=== PATIENT | male | born 1975 | race Caucasian/White ===

== ENCOUNTER 2017-03-20 03:09 | Inpatient (IN) | payer MEDICARE ==
--- NOTE | ~2017-03-20 | A ---
[facility] Nutrition Therapy DATE: 03/20/17 Patient: LEROY TROY Physician: ITALIA Address: [address] [facility] Room/Bed: [address], Zip: [place] [address] Admit Date: 03/20/17 Date of : 75 Height: 6 0 Weight: 156 71 NUTRITIONAL ASSESSMENT: REASON: Enteral nutrition recommendations, NPO status 41 yo male admitted for acute hypoxic respiratory failure, SOA PMH: Drug abuse, asthma Anthropometrics: Ht: 6'0" Adm wt: 71 kg BMI: 21.2 IBW: 80.9 kg, 88% IBW Labs: Gluc 141 Meds: Propofol @ 18.9 mL/hr, levaquin (IV), fentanyl, protonix, solu-medrol, KCl I/O & Bowel function: none available, last BM unknown Skin Integrity: No breakdown or edema noted Estimated Nutrition Needs: 6163-4740 kcals (25-30 kcals/kg) 85-106 grams protein (1.2-1.5 grams protein/kg) Assessment: Chart reviewed, events noted. Pt is intubated and sedated in the ICU. Propofol is providing an additional 499 kcals from lipids at this time. Pt has a h/o drug abuse and asthma. Orders to place DHT and start enteral nutrition per RD recommendations. No family is present in the room to provide nutritional history. Please refer to recommendations below. Dx: Inadequate protein-energy intake RT ventilator dependence AEB NPO status, orders for EN. Intervention: 1. Enteral nutrition Monitoring, Evaluation and Goals: 1. Enteral nutrition; initiate, provide >80% goal volume x 24 hrs 2. Improve labs; glucose 3. Weight; prevent weight loss, promote gradual weight gain towards IBW Recommendations: 1. While the pt remains on propofol, start enteral nutrition with Jevity 1.5 @ 20 mL/hr + 30 mL Prostat BID. Increase by 10 mL q 6 hrs as tolerated to goal of 40 mL/hr + 30 mL Prostat BID. This will provide: 2139 kcals/ 91 grams protein/ 730 mL free H20 [facility] Nutrition Therapy DATE: 03/20/17 Patient: LEROY TROY Physician: ITALIA Address: [address] Room/Bed: [address], Zip: [place] [address] Admit Date: 03/20/17 Date of : [birth year] Height: 6 0 Weight: 156 71 2. When propofol is discontinued, D/C prostat and increase Jevity 1.5 by 10 mL q 6 hrs to goal of 60 mL/hr. This will provide: 2160 kcals/ 92 grams protein/ 1094 mL free H20 3. If the pt is extubated, recommend ENGINEER evaluation. Pt is at moderate-severe nutritional risk. RD will follow up per protocol. Respectfully, ABDIRASHID MA RD, LD Food and Nutritional Services [facility] cc: client file
--- NOTE | ~2017-03-20 | DS ---
Unit #: [id number] #: [id number] Patient: LEROY TROY [id number] [address] [address] [id number] I MR#: [id number] NAME: LEROY TROY ROOM: [facility] Age: 41 Sex: M Admission Date: 03/20/2017 : 1975 Discharge Date: Attending Physician: Jewels Multani M.D. Primary Care Physician: No Primary Care Physician DISCHARGE SUMMARY DISCHARGE DIAGNOSES 1. Acute hypercapnic hypoxic respiratory failure. 2. Asthma with exacerbation with status asthmaticus. 3. IV drug abuse. 4. Polysubstance abuse with methamphetamine and heroin. 5. Questionable maxillary nasal lesion secondary to snorting heroin. 6. Lung mass, needs outpatient followup. 7. Noncompliance. 8. Toxic metabolic encephalopathy present on admission. 9. Sinus tachycardia, likely from drug withdrawal. CONSULTATION Dr. Diez. PROCEDURE None. DIAGNOSTIC STUDIES LABORATORY: Sodium 136, potassium 3.5, creatinine 0.7. WBC 21.8, hemoglobin 13, platelets 358,000. Urine drug screen positive for marijuana. Troponin 0.08. ABG: A pH 7.42, carbon dioxide 48, oxygen 101. Blood cultures negative. IMAGING: Chest x-ray, two view, shows no acute infiltrate. CT of the head shows expansile lesion anterior cortical disruption involving the maxilla extending to the right of the midline measuring 4.2 x 1.4 cm. ALLERGIES None. DISCHARGE MEDICATIONS 1. Lopressor 50 p.o. b.i.d. 2. Albuterol mini nebs inhalation four times daily p.r.n. shortness of breath. 3. Albuterol MDI two puffs inhalation four times daily p.r.n. 4. Prednisone tapering dose. 5. Vistaril 25 mg p.o. b.i.d. HOSPITALIZATION COURSE A 41 year old admitted because of shortness of breath and respiratory distress. Unit #: [id number] #: [id number] Patient: LEROY TROY Acute hypercapnic hypoxic respiratory failure from drug abuse and asthma. The patient was intubated, currently extubated. He does not need home oxygen. Asthma with status: Patient was intubated. IV Solu-Medrol and DuoNeb have been given. Currently, breathing better. No wheezing. Patient will continue prednisone tapering dose and albuterol nebulizer and puffer. Patient needs to follow with Dr. Diez as an outpatient. IV drug abuse with polysubstance abuse including methamphetamine, heroin, and marijuana. Advised to quit. Patient is seen by Dr. Chi, started on Vistaril. Patient needs to follow outpatient for followup. Nasal lesion with maxillary involvement, likely secondary to snorting heroin. Patient will follow ENT as an outpatient. Initially, patient refused to follow. Also, patient will follow Dr. Diez for followup. Questionable lung mass: Patient to follow Dr. Diez as an outpatient for that. Discussed with mother and sister. Patient has noncompliance issues, high risk of re-admission from drug abuse. DISPOSITION Discharge home. FOLLOWUP Follow with family physician in two weeks' time. Patient needs followup for his maxillary mass and lung mass with ENT and pulmonary. Follow with outpatient [facility] in two weeks' time. Discharge time taken is 35 minutes. Dictated by... Mateusz Mota/kristal TD: 03/27/2017 13:45 JOB #: [id number] DISCHARGE SUMMARY Page 1 of 1 X Jewels Multani MD X DISCHARGE SUMMARY
--- NOTE | ~2017-03-20 | CR63 ---
[facility] A Service of [facility] & [facility] RADIOLOGY TEXT RESULTS PATIENT: LEROY TROY LOCATION: [place] [address]- : 75 UNIT #: [id number] AGE: [address]: Jewels Multani MD SEX: M ORDER DR: [id number] [place] [id number] [facility]. [place], [place] [address] [id number] I MR#: [id number] Acc #: [id number] NAME: LEROY TROY : 1975 SEX: M STUDY DATE/TIME: 03/26/2017 8:22 UNIT: [facility] ROOM: [facility] STUDY DESCRIPTION: CR Chest 2 View Attending Physician: Jewels Multani M.D. Ordering Physician: Gildardo Munoz M.D. MEDICAL IMAGING REPORT This report is preliminary unless electronic signature is present EXAM Portable chest INDICATIONS Followup shortness of breath and respiratory failure. COMPARISON STUDIES 03/21/2017. FINDINGS The endotracheal tube has been removed. The right IJ central venous catheter is stable. No new infiltrates. Heart size stable. NG tube has been removed. Visualized osseous structures are unremarkable. IMPRESSION Removal of the ET tube and NG tubes. Otherwise, no significant change. No acute infiltrate. Dictated by... Rehan Govea M.D. THIS IS AN ELECTRONICALLY VERIFIED REPORT Rehan Govea M.D. at 03/27/2017 7:50 AM ARS/pcl TD: 03/26/2017 13:30 JOB #: [id number] MEDICAL IMAGING REPORT Page 1 of 1 COPY
--- NOTE | ~2017-03-20 | EKG ---
PATIENT: LEROY TROY UNIT #: [id number] Ventricular Rate: 75 BPM Atrial Rate: 75 BPM P-R Interval: 100 ms QRS Duration: 74 ms Q-T Interval: 416 ms QTC Calculation(Bezet): 464 ms P [place]: 37 degrees Calculated R [place]: 71 degrees Calculated T [place]: 79 degrees Diagnosis Line: Sinus rhythm with short AR Diagnosis Line: Voltage criteria for left ventricular hypertrophy Diagnosis Line: Abnormal ECG Diagnosis Line: When compared with ECG of 20-MAR-2017 03:35, Diagnosis Line: Vent. rate has decreased BY 48 BPM Diagnosis Line: Diagnosis Line: Confirmed by HILLARY SILVERIO MD ([id number]) on Diagnosis Line: 03/26/2017 11:12:30 AM INTERPRETING : ALDO
--- NOTE | ~2017-03-20 | CR7 ---
[facility] A Service of [facility] & [facility] RADIOLOGY TEXT RESULTS PATIENT: LEROY TROY LOCATION: [address] : [birth year] UNIT #: [id number] AGE: [address]: Jewels Multani MD SEX: M ORDER DR: [id number] [facility] [address] [facility]. [place], [place] [address] [id number] I MR#: [id number] Acc #: [id number] NAME: LEROY TROY : 1975 SEX: M STUDY DATE/TIME: 03/20/2017 11:59 UNIT: [facility] ROOM: [facility] STUDY DESCRIPTION: CR Abdomen Single AP View Attending Physician: Jewels Multani M.D. Ordering Physician: Kylee Diez M.D. Primary Care Physician: Primary Care Physician No MEDICAL IMAGING REPORT This report is preliminary unless electronic signature is present EXAM Abdomen one-view 03/20/2017 1159 hours HISTORY 41-year-old man for Dobbhoff tube placement today. COMPARISON None. FINDINGS Single limited view of the abdomen excludes the right abdomen and the pelvis. There is a Dobbhoff tube present with tip directed leftward and cephalad in the fundus of the stomach. IMPRESSION Dobbhoff tube tip is in the fundus of the stomach with tip directed leftward and slightly cephalad. Dictated by... Mary Grace Tapia M.D. THIS IS AN ELECTRONICALLY VERIFIED REPORT Mary Grace Tapia M.D. at 03/20/2017 7:31 PM Jade TD: 03/20/2017 13:54 JOB #: [id number] MEDICAL IMAGING REPORT Page 1 of 1 COPY
--- NOTE | ~2017-03-20 | EKG ---
PATIENT: LEROY TROY UNIT #: [id number] Ventricular Rate: 123 BPM Atrial Rate: 123 BPM P-R Interval: 138 ms QRS Duration: 84 ms Q-T Interval: 322 ms QTC Calculation(Bezet): 460 ms P [place]: 79 degrees Calculated R [place]: 71 degrees Calculated T [place]: 58 degrees Diagnosis Line: Sinus tachycardia Diagnosis Line: Possible Left atrial enlargement Diagnosis Line: Borderline ECG Diagnosis Line: No previous ECGs available Diagnosis Line: Confirmed by TINO BENDER MD ([id number]) on Diagnosis Line: 03/20/2017 5:50:36 PM INTERPRETING MD: LINDA
--- NOTE | ~2017-03-20 | FU ---
[facility] Nutrition Therapy DATE: 03/24/17 Patient: LEROY SYDNI Physician: ITALIA Address: [address] [place] [address] Room/Bed: [address], Zip: [place] [address] Admit Date: 03/20/17 Date of : [birth year] Height: 6 0 Weight: 156 71 NUTRITION MONITORING/FOLLOW-UP: Reason: Nutrition follow up Anthropometrics: Wt 03/24: 71 kg Labs: Gluc 130 Creat 0.5 Ca++ 8.3 Meds: Protonix, zofran, solu-medrol, NaCl I&O's: 5283/4525, last BM 03/20 Skin: No breakdown or edema noted Diet: Regular + thin liquids Assessment: Chart reviewed, events noted. Pt was extubated on 03/22 and DHT removed. Regular diet with thin liquids ordered per SPECIAL NEEDS CAREGIVER evaluation. Pt is SOA, wheezing per RN report. Pt consumed 100% of a V8 and 50% of oatmeal for breakfast this AM per RN report. RN reports that the pt continually orders a house tray for each meal. RD spoke with the pt and his girlfriend at bedside. RD explained the importance of adequate protein-energy in relation to the pt's increased nutritional needs. Pt was on BiPAP, but nodded his head in understanding. Pt is agreeable to Ensure and Magic Cup supplements. RD reviewed the menu with the pt's girlfriend, determining the foods that the pt would be more likely to eat. RD encouraged RN and the pt's girlfriend to order foods that the pt prefers to increase his intake. RD ordered supplements and fill continue to follow up with the pt. Pt denied having any questions regarding nutrition at this time. Dx: Inadequate protein-energy intake RT ventilator dependence AEB NPO status, order for EN- RESOLVED/ NO LONGER RELEVANT New Dx: Inadequate nutrient intake RT respiratory distress AEB pt on BiPAP, 50% of breakfast consumed. Intervention: 1. Diet per SPECIAL NEEDS CAREGIVER 2. Ensure BID and Magic Cup BID Monitoring, Evaluation and Goals: 1. Enteral nutrition-NO LONGER RELEVANT 2. Improve labs; glucose- IMPROVED 3. Weight; prevent weight loss- MET [facility] Nutrition Therapy DATE: 03/24/17 Patient: LEROY TROY Physician: ITALIA Address: [address] [place] [address] Room/Bed: [address], Zip: [place] [address] Admit Date: 03/20/17 Date of : [birth year] Height: 6 0 Weight: 156 71 NEW GOALS: 1. Oral intake; tolerate >50-75% of meals and supplements 2. Weight; prevent unintentional weight loss 3. GI; promote regular GI function Recommendations: 1. Continue regular diet with thin liquids per SPECIAL NEEDS CAREGIVER recommendations. No further diteary restrictions recommended at this time. Pt may benefit from 6 small meals if unable to consume >50% of meals. 2. Ensure chocolate BID and Magic Cup chocolate BID for supplemental nutrition. 3. Appreciate staff and family encouraging and assisting with nutritional intake as needed. 4. Optimize the pt's bowel regimen with last noted BM 03/20. Status: Pt is at moderate nutritional risk. RD will continue to follow hospital course. Respectfully, ABDIRASHID MA RD, LD Food and Nutritional Services [facility] cc: client file
--- NOTE | ~2017-03-20 | CO ---
Unit #: [id number] #: [id number] Patient: LEROY NAYLOR [id number] [address] [address] [id number] I MR#: [id number] NAME: LEROY NAYLOR ROOM: 551 Age: 41 Sex: M Admission Date: 03/20/2017 : 1975 Attending Physician: Jewels Multani M.D. Consultation Date: 03/27/2017 CONSULTATION REPORT REASON FOR CONSULTATION Confusion, agitation, paranoia. HISTORY OF PRESENT ILLNESS Mr. Leroy Naylor is a 41-year-old male, seen in room 551, bed 1 on 03/27/2017 at [facility]. The patient was seen for the above reason. The patient was admitted for respiratory distress. The patient's oxygen saturation was 70% upon admission, the patient needed intubation. The patient has a history of asthma, lung mass questionable. The patient has a history of meth and marijuana abuse. The patient was pleasant and cooperative during interview. The patient has a sitter. Mood was labile, but denied any thoughts of harming self or others or any psychotic symptom. The patient reports feeling better. The patient has a history of IV drug abuse, history of polysubstance abuse including meth and marijuana. PAST PSYCHIATRIC HISTORY Unremarkable for any history of any previous treatment. History of substance abuse as mentioned above. MEDICAL HISTORY Remarkable for history of asthma and history of lung mass questionable cancer. MEDICATIONS Upon admission, none. FAMILY HISTORY AND SOCIAL HISTORY The patient has a poor support system. No history of abuse. History of substance abuse as mentioned above, meth and opioids. REVIEW OF SYSTEMS Complete review of system is unremarkable. MENTAL STATUS EXAMINATION Vital signs; temperature 97.7, pulse 108, respirations 16, blood pressure 93/54, and oxygen saturation 91%. General appearance; the patient dressed casually, lying comfortably in bed. The patient has a sitter, reports him doing much better. Attention span and concentration, fair. Speech, regular rate and somewhat loud. Oriented in time, place, and person. Mood and affect were labile. Thought process, circumstantial. The patient denied any thoughts of harming self or others or any psychotic symptom. Recent and remote memory, fair. Language, intact. Fund of knowledge, fair. Insight and judgment, fair to slightly impaired. Unit #: [id number] #: [id number] Patient: LEROY NAYLOR DIAGNOSES Psychiatric: Opioid use disorder, severe, F11.20; amphetamine use disorder, moderate, F15.20; psychosis, not otherwise specified, F29.0, resolved. Secondary diagnosis: Deferred. Medical diagnosis: Please refer to H and P. Stressors: Psychosocial stressors. ASSESSMENT/PLAN 1. Supportive psychotherapy and psychoeducation provided to the patient. 2. Educated about benefits and side effects of medication and course and prognosis of illness. 3. Advised no medication at this time and we will continue to follow and recommending the patient [facility] and given crisis line #[phone]. Please feel free to call if any questions, telephone #[phone]. Dictated by... César Chi M.D. STEPHANY/troy TD: 03/28/2017 23:19 JOB #: [id number] CONSULTATION REPORT Page 1 of 1 X César Chi MD X CONSULTATION REPORT
--- NOTE | ~2017-03-20 | CR72 ---
[facility] A Service of [facility] & [facility] RADIOLOGY TEXT RESULTS PATIENT: LEROY TROY LOCATION: [address] : [birth year] UNIT #: [id number] AGE: [address]: Jewels Multani MD SEX: M ORDER DR: [id number] [facility] [address] [facility]. [place], [place] [address] [id number] I MR#: [id number] Acc #: [id number] NAME: LEROY TROY : 1975 SEX: M STUDY DATE/TIME: 03/20/2017 13:22 UNIT: [facility] ROOM: [facility] STUDY DESCRIPTION: CR Chest Single View Portable Attending Physician: Jewels Multani M.D. Ordering Physician: Jewels Multani M.D. Primary Care Physician: No Primary Care Physician MEDICAL IMAGING REPORT This report is preliminary unless electronic signature is present EXAM Chest, portable, 03/20/2017, 1322 hours. CLINICAL HISTORY 41-year-old man with shortness of air today. Patient placed on ventilator with central line placement today. History of asthma. COMPARISON 03/20/2017 FINDINGS Portable upright film demonstrates the patient to be slightly rotated to the right. There is an endotracheal tube with tip approximately 4.5 cm above the ananth. There is a new right IJ catheter with tip at the upper right atrium. If it is desired to have the tip in the SVC, I would suggest withdrawing it approximately 3 cm. The pulmonary vascularity is normal. The lungs are clear and there are no effusions. There is a flexible feeding tube present which loops in the stomach with tip directed leftward and cephalad in the fundus of the stomach. IMPRESSION Rotated film with stable endotracheal tube. New right IJ catheter tip is in the upper right atrium. If it is desired to have the tip in the SVC, I would suggest withdrawing the catheter 3 cm. Dobbhoff tube tip is in the fundus of the stomach directed leftward and cephalad. The lungs are clear and there is no pneumothorax. Dictated by... Mary Grace Tapia M.D. THIS IS AN ELECTRONICALLY VERIFIED REPORT [facility] A Service of [facility] & [facility] RADIOLOGY TEXT RESULTS PATIENT: LEROY TROY LOCATION: [facility]3-15 : [birth year] UNIT #: [id number] AGE: [address]: Jewels Multani MD SEX: M ORDER DR: Mary Grace Tapia M.D. at 03/20/2017 7:31 PM JHONNY/tracie TD: 03/20/2017 15:18 JOB #: [id number] MEDICAL IMAGING REPORT Page 1 of 1 COPY
--- NOTE | ~2017-03-20 | CT71 ---
[facility] A Service of [facility] RADIOLOGY TEXT RESULTS PATIENT: LEROY TROY LOCATION: [address] : [birth year] UNIT #: [id number] AGE: [address]: Jewels Multani MD SEX: M ORDER DR: [id number] [place] [address] [facility]. [place], [place] [address] [id number] I MR#: [id number] Acc #: [id number] NAME: LEROY TROY : 1975 SEX: M STUDY DATE/TIME: 03/20/2017 7:18 UNIT: [facility] ROOM: [facility] STUDY DESCRIPTION: CT Head Wo Contrast Attending Physician: Jewels Multani M.D. Ordering Physician: Ed Doctor [id number] [facility] Primary Care Physician: Primary Care Physician No MEDICAL IMAGING REPORT This report is preliminary unless electronic signature is present EXAM CT head without contrast Date: 03/20/2017 HISTORY Unequal pupils, new today, onset 1.5 hours ago. On the ventilator. Shortness of breath. Physician's history states pupils are nonreactive. COMPARISON None. This CT exam was performed with one or more of the following radiation dose reduction techniques: automatic exposure control, adjustment of mA and/or kV according to patient size, and iterative reconstruction. FINDINGS Study is mildly degraded by motion related to the ventilator, requiring repeated attempts at imaging. No intracranial hemorrhage, mass lesion, mass effect or midline shift is seen. The michaud matter - white matter junction distinction appears preserved without evidence of acute or evolving infarct at this time. Mucous retention cyst or polyp is seen within the left maxillary sinus. There is an abnormal appearance of the maxilla. There is discontinuity at the anterior cortical margin right maxilla, and the area of involvement appears in central soft tissue density. In the absence of a provided history previous surgery or trauma to this region, neoplastic etiology cannot be excluded. The patient is orally intubated. The mastoid air cells appear clear. IMPRESSION [facility] A Service [facility] RADIOLOGY TEXT RESULTS PATIENT: LEROY TROY [facility] [birth year] UNIT #: [id number] AGE: [address]: Jewels Multani MD SEX: M ORDER DR: 1. No acute appearing intracranial findings. Mild degradation due to ventilator respiratory motion. 2. Expansile lesion with anterior cortical disruption involving the maxilla extending to the right of midline measuring 4.2 x 1.4 cm. In the absence of history of trauma or previous surgical intervention, neoplastic etiology such as squamous cell carcinoma cannot be excluded. Please correlate with direct physical examination findings. Consider correlation to dedicated CT face with contrast if it would aid in patient's clinical management this time. Dictated by... Lida Ibrahim M.D. THIS IS AN ELECTRONICALLY VERIFIED REPORT Lida Ibrahim M.D. at 03/21/2017 8:46 AM Edy TD: 03/20/2017 10:30 JOB #: [id number] MEDICAL IMAGING REPORT Page 1 of 1 COPY
--- NOTE | ~2017-03-20 | CO ---
Unit #: [id number] #: [id number] Patient: LEROY TROY [id number] [address] [place], [place] [address] [id number] I MR#: [id number] NAME: LEROY TROY ROOM: [facility] Age: 41 Sex: M Admission Date: 03/20/2017 : 1975 Attending Physician: Jewels Multani M.D. Primary Care Physician: No Primary Care Physician Consultation Date: 03/20/2017 CONSULTATION REPORT REASON FOR CONSULT ICU management. HISTORY OF PRESENT ILLNESS This is a 41-year-old male with past medical history significant for asthma and IV drug abuse, who presented to the emergency room with respiratory distress. Per his mom who is at bedside, she stated that he has been complaining of shortness of breath for the last two days but it was progressing rapidly to the point he was unable to take any deep breaths, so he called EMS. By the time he arrived to the ER, he was placed on BiPAP but then immediately was intubated due to failure to respond to the BiPAP. Per mom, patient was diagnosed with lung malignancy many years ago but he refused any kind of treatment. Patient does not see any doctors and he does not take any medication except albuterol inhaler which he gets from his mom because he does not have insurance. Mom also admitted IV drug abuse and sniffing. He uses various drugs including methamphetamine, crack, and cocaine. PAST MEDICAL HISTORY 1. Asthma. 2. Drug abuse. 3. Questionable malignancy. PAST SURGICAL HISTORY None. SOCIAL HISTORY The patient does not smoke. He does, however, sniff drugs likely including cocaine with IV drug abuse and remote alcoholism. ALLERGIES No known drug allergies. HOME MEDICATION Albuterol p.r.n. FAMILY HISTORY Cervical cancer, breast cancer, and coronary artery disease. REVIEW OF SYSTEMS Unable to obtain. Unit #: [id number] #: [id number] Patient: LEROY TROY PHYSICAL EXAMINATION GENERAL: The patient is on the vent and well sedated. HEENT: Atraumatic, normocephalic. Left pupil are 4 mm and right pupil is pinpoint. NECK: Supple. No JVD. No lymphadenopathy. CHEST: Severe wheezing and prolonged expiration phase. HEART: S1, S2. No murmur, gallop, or rubs. ABDOMEN: Soft, nontender. Bowel sounds are positive. No hepatosplenomegaly. EXTREMITIES: No edema or cyanosis. SKIN: No rashes. CENTRAL NERVOUS SYSTEM: Patient is intubated and sedated. He is squeezing hands and moving all extremities. DIAGNOSTIC STUDIES LABORATORY: A pH 7.26, pCO2 of 56. Creatinine 0.9. White blood count 9.3. IMAGING: CT head and chest x-ray are reviewed and discussed with staff. ASSESSMENT 1. Acute hypoxic hypercarbic respiratory failure. 2. Status asthmaticus. 3. Drug abuse, IV and sniffing. 4. Nasal lesion, rule out carcinoma versus ulceration from sniffing. 5. Noncompliance. PLAN 1. Patient will be continued on the vent with permissive hypercarbia due to status asthmaticus. 2. Bronchodilator, IV steroids, and mucolytics. 3. IV Levaquin pending further evaluation and management. 4. IV hydration and sedation. 5. Deep venous thrombosis and gastrointestinal prophylaxis. Critical care time spent on this patient was 35 minutes. Dictated by... Mateusz Garrett TD: 03/20/2017 10:46 JOB #: [id number] Unit #: [id number] #: [id number] Patient: LEROY TROY CONSULTATION REPORT Page 1 of 1 X TARYN KEVIN MD CONSULTATION REPORT
--- NOTE | ~2017-03-20 | HP ---
Unit #: [id number] #: [id number] Patient: LEROY TROY [id number] [address] [address] [id number] I MR#: [id number] NAME: LEROY TROY ROOM: [facility] Age: 41 Sex: M Admission Date: 03/20/2017 : 1975 Attending Physician: Jewels Multani M.D. Primary Care Physician: No Primary Care Physician HISTORY AND PHYSICAL CHIEF COMPLAINT Respiratory distress. HISTORY OF PRESENT ILLNESS A 41 year old with history of polysubstance abuse and noncompliance, never saw a doctor before, with a history of questionable lung mass, admitted because of shortness of breath. Patient was brought by paramedics. Currently patient is intubated, sedated. Most of the history is taken from ER physician, chart and the family members, mother and sister. According to the ER physician and chart, the patient was given (1) paramedics. He was saturating in the 70s, started on CPAP and later intubated in the emergency room. PAST MEDICAL HISTORY 1. History of asthma. 2. History of lung mass, questionable cancer. Patient did not follow with any doctor for it. PAST SURGICAL HISTORY None. SOCIAL HISTORY Uses meth. Marijuana. No smoking. Ex-alcoholic. FAMILY HISTORY Positive for hypertension. MEDICATIONS None. ALLERGIES None. REVIEW OF SYSTEMS Unobtainable because the patient is currently intubated and sedated. PHYSICAL EXAMINATION GENERAL EXAMINATION: This is a 41 year old in ICU, lying on bed, intubated, sedated. VITAL SIGNS: Temperature 97.6, pulse 130, respiratory rate 25, blood pressure 185/82. HEENT: Pupils are equally reactive to light and accommodation. Dry mucosa present. NECK: Supple. Unit #: [id number] #: [id number] Patient: LEROY TROY HEART: S1, S2 heard. Regular rhythm. No murmurs. LUNGS: Clear to auscultation. Wheezing present. ABDOMEN: Soft, nontender. Bowel sounds present. EXTREMITIES: No pedal edema. SKIN: No rash. NEUROLOGIC: Patient is intubated and sedated. DIAGNOSTIC STUDIES LAB DATA: ABG - pH 7.13, carbon dioxide 81, oxygen 381. WBC 9.3, hemoglobin 16.1, platelets 395. Urine drug screen positive for amphetamine and marijuana. Lactic acid 1.7. Sodium 139, potassium 4, creatinine 0.9. Liver enzymes normal. Alcohol less than 5. BNP 11. Procalcitonin less than 0.5. IMAGING: Chest x-ray shows no active disease. CT of the head shows expansile lesion with anterior cortical disruption involving the maxilla extending to the right of midline measuring 4.2 cm x 1.4 cm. In the absence of trauma or previous surgical intervention, neoplastic etiology, such as squamous cell carcinoma, cannot be ruled out. Consider CT of the face. ASSESSMENT A 41 year old admitted because of shortness of breath. PLAN 1. Acute hypercapnic hypoxic respiratory failure likely from asthma and drug abuse. Patient currently intubated, sedated. ICU management per Dr. Diez. Patient will get Levaquin, Solu-Medrol, DuoNeb. 2. Asthma with status epilepticus with exacerbation. Continue with IV Solu-Medrol, DuoNeb and intubation. 3. IV drug abuse with history of polysubstance abuse, including meth use and marijuana use. Patient needs drug rehab. His mom says that he always uses drugs and he never follows his doctor, and he never takes his medicines as needed, especially his asthma medicines. 4. History of severe noncompliance with medical advice and followup. 5. Maxillary mass. Patient needs CT of the face. 6. Discussed with mother and sister. 7. Long-term prognosis is poor because of noncompliance. Dictated by Mateusz Mota/monster TD: 03/20/2017 12:21 JOB #: [id number] Unit #: [id number] #: [id number] Patient: LEROY TROY HISTORY AND PHYSICAL Page 1 of 1 X Jewels Multani MD X HISTORY AND PHYSICAL
--- NOTE | ~2017-03-20 | CR72 ---
[facility] A Service of [facility] & [facility] RADIOLOGY TEXT RESULTS PATIENT: LEROY TROY LOCATION: [address] : [birth year] UNIT #: [id number] AGE: [address]: Jewels Multani MD SEX: M ORDER DR: [id number] [facility] [address] [facility]. [place], [place] [address] [id number] I MR#: [id number] Acc #: [id number] NAME: LEROY TROY : 1975 SEX: M STUDY DATE/TIME: 03/21/2017 5:12 UNIT: [facility] ROOM: [facility] STUDY DESCRIPTION: CR Chest Single View Portable Attending Physician: Jewels Multani M.D. Ordering Physician: Kylee Diez M.D. Primary Care Physician: No Primary Care Physician MEDICAL IMAGING REPORT This report is preliminary unless electronic signature is present EXAM Portable chest. HISTORY Respiratory failure, shortness of air. Followup endotracheal tube. FINDINGS This portable view of the chest shows the lungs are clear. The endotracheal tube and central venous catheter are in good position. The Dobbhoff tube has its tip in the stomach. Dictated by... Jemal Arrington M.D. THIS IS AN ELECTRONICALLY VERIFIED REPORT Jemal Arrington M.D. at 03/21/2017 1:22 PM PETRONA/tracie TD: 03/21/2017 10:42 JOB #: [id number] MEDICAL IMAGING REPORT Page 1 of 1 COPY
--- NOTE | ~2017-03-20 | CR72 ---
[facility] A Service of [facility] & [facility] RADIOLOGY TEXT RESULTS PATIENT: LEROY TROY LOCATION: [place] [id number] : [birth year] UNIT #: [id number] AGE: [address]: Jewels Multani MD SEX: M ORDER DR: [id number] [facility] [address] [address]. [place], [place] [address] [id number] I MR#: [id number] Acc #: [id number] NAME: LEROY TROY : 1975 SEX: M STUDY DATE/TIME: 03/20/2017 3:26 UNIT: [facility] ROOM: [facility] STUDY DESCRIPTION: CR Chest Single View Portable Attending Physician: Jewels Multani M.D. Ordering Physician: Blas Nicole M.D. Primary Care Physician: No Primary Care Physician MEDICAL IMAGING REPORT This report is preliminary unless electronic signature is present EXAM Portable chest. INDICATIONS Endotracheal tube placement and respiratory failure. Shortness of air tonight. COMPARISON No comparison. FINDINGS A portable view of the chest is obtained. The heart size and vascularity are normal. The lungs are clear. The endotracheal tube tip is 5 cm above the ananth. The bones are normal. IMPRESSION The endotracheal tube is in good position and there is no active disease. Dictated by... Jemal Arrington M.D. THIS IS AN ELECTRONICALLY VERIFIED REPORT Jemal Arrington M.D. at 03/20/2017 12:39 PM FEL/bd TD: 03/20/2017 10:09 JOB #: [id number] MEDICAL IMAGING REPORT Page 1 of 1 COPY
[2017-03-20 03:29] LABS: ARTERIAL BLOOD GAS pH 7.133 (7.350-7.450)
[2017-03-20 03:30] LABS: ARTERIAL BLD GAS O2 SATURATION 98.6 % (90.0-100.0); ARTERIAL BLOOD GAS ART SITE RIGHT FEMORAL; ARTERIAL BLOOD GAS CARBOXY HB 0.4 %sat (0.0-9.0); ARTERIAL BLOOD GAS DELIVERY VENT; ARTERIAL BLOOD GAS HCO3 29.8 mmol/L; ARTERIAL BLOOD GAS MET HB 0.6 %sat (0.0-2.0); ARTERIAL BLOOD GAS PCO2 89.1 mmHg (35.0-45.0); ARTERIAL BLOOD GAS VENT MODE AC; ARTERIAL DRAW? YES
[2017-03-20 03:55] LABS: BASOPHIL# 0.1 X10e3 (0-0.3); BASOPHIL% 1.3 % (0-2.5); EOSINOPHIL# 0.5 X10e3 (0-0.7); EOSINOPHIL% 5.7 % (0.0-7.0); HEMOGLOBIN 16.1 gm/dL (13.0-16.0); LYMPHOCYTE# 4.3 X10e3 (1.0-3.5); LYMPHOCYTE% 46.3 % (17.0-45.0); MEAN CELL VOLUME 88.9 FL (83-96); MEAN CORPUSCULAR HEMOGLOBIN 29.9 PG (28-34); MEAN CORPUSCULAR HGB CONC 33.6 g/dL (30-36); MEAN PLATELET VOLUME 8.2 FL (6.5-11.5); MONOCYTE# 0.9 X10e3 (0-1.0); NEUTROPHIL# 3.4 X10e3 (1.5-7.1); NEUTROPHIL% 36.7 % (40-75); PLATELET COUNT 395 X10e3 (140-420); RED CELL DISTRIBUTION WIDTH 13.1 % (11.0-15.5); WHITE BLOOD COUNT 9.3 X10e3 (4.0-10.5)
[2017-03-20 03:55] LABS: POC - CKMB 2.3 ng/mL (0.0-7.9); POC - TROPONIN <0.05 ng/mL (<=0.05)
[2017-03-20 03:58] LABS: DIFF IND NO
[2017-03-20 04:07] LABS: AMPHETAMINE POS (NEG); BARBITURATES NEG (NEG); BENZODIAZEPINES NEG (NEG); COCAINE NEG (NEG); MARIJUANA POS (NEG); OPIATES NEG (NEG); TRICYCLIC ANTIDEPRESSANTS NEG (NEG); U METHADONE NEG (NEG)
[2017-03-20 04:09] LABS: PARTIAL THROMBOPLASTIN TIME 24.7 SECONDS (23.5-31.3); PROTHROMBIN TIME (PATIENT) 10.7 SECONDS (9.6-11.5)
[2017-03-20 04:14] LABS: ALBUMIN SERUM 4.2 g/dL (3.5-5.0); ALKALINE PHOSPHATASE 66 U/L (32-92); ALT (SGPT) 18 U/L (10-40); AST (SGOT) 22 U/L (10-42); BILIRUBIN, DIRECT 0.1 mg/dL (0.0-0.2); BILIRUBIN,INDIRECT 0.5 mg/dL (0.0-0.9); BILIRUBIN,TOTAL 0.6 mg/dL (0.2-2.0); BLOOD UREA NITROGEN 9 mg/dL (9-23); CARBON DIOXIDE 29 mmol/L (22-31); CHLORIDE 104 mmol/L (100-111); CREATININE SERUM 0.9 mg/dL (0.6-1.4); GLOM FILT RATE Estimated 105.7 mL/min (>60); GLUCOSE FASTING 141 mg/dL (70-110); PROTEIN TOTAL SERUM 7.4 g/dL (6.0-8.3); SODIUM 139 mmol/L (135-145)
[2017-03-20 04:16] LABS: ALCOHOL BLOOD <5 mg/dL (0)
[2017-03-20 05:13] LABS: ARTERIAL BLD GAS O2 SATURATION 98.2 % (90.0-100.0); ARTERIAL BLOOD GAS ART SITE RIGHT FEMORAL; ARTERIAL BLOOD GAS CARBOXY HB 0.5 %sat (0.0-9.0); ARTERIAL BLOOD GAS HCO3 26.4 mmol/L; ARTERIAL BLOOD GAS MET HB 0.7 %sat (0.0-2.0); ARTERIAL BLOOD GAS PCO2 55.1 mmHg (35.0-45.0); ARTERIAL BLOOD GAS pH 7.289 (7.350-7.450); ARTERIAL DRAW? YES
[2017-03-20 05:14] LABS: ARTERIAL BLOOD GAS DELIVERY VENT; ARTERIAL BLOOD GAS VENT MODE AC
[2017-03-20 05:49] LABS: POC - CKMB 2.6 ng/mL (0.0-7.9); POC - TROPONIN <0.05 ng/mL (<=0.05)
[2017-03-20 07:09] LABS: ARTERIAL BLD GAS O2 SATURATION 98.6 % (90.0-100.0); ARTERIAL BLOOD GAS ALLEN TEST NORMAL; ARTERIAL BLOOD GAS ART SITE LEFT RADIAL; ARTERIAL BLOOD GAS CARBOXY HB 0.1 %sat (0.0-9.0); ARTERIAL BLOOD GAS HCO3 23.9 mmol/L; ARTERIAL BLOOD GAS MET HB 0.7 %sat (0.0-2.0); ARTERIAL BLOOD GAS PCO2 61.3 mmHg (35.0-45.0); ARTERIAL BLOOD GAS VENT MODE A/C; ARTERIAL BLOOD GAS pH 7.198 (7.350-7.450); ARTERIAL DRAW? YES
[2017-03-20 08:48] LABS: ARTERIAL BLOOD GAS HCO3 15.4 mmol/L; ARTERIAL BLOOD GAS PCO2 56.5 mmHg (35.0-45.0); ARTERIAL BLOOD GAS pH 7.264 (7.350-7.450)
[2017-03-20 08:49] LABS: ARTERIAL BLD GAS O2 SATURATION 98.7 % (90.0-100.0); ARTERIAL BLOOD GAS CARBOXY HB 0.1 %sat (0.0-9.0); ARTERIAL BLOOD GAS MET HB 0.6 %sat (0.0-2.0); ARTERIAL DRAW? YES
[2017-03-20 08:50] LABS: ARTERIAL BLOOD GAS ART SITE RIGHT RADIAL; ARTERIAL BLOOD GAS DELIVERY VENT; ARTERIAL BLOOD GAS VENT MODE AC
[2017-03-20 16:03] LABS: ARTERIAL BLOOD GAS pH 7.139 (7.350-7.450)
[2017-03-20 16:04] LABS: ARTERIAL BLOOD GAS ART SITE RIGHT RADIAL; ARTERIAL BLOOD GAS CARBOXY HB 0.3 %sat (0.0-9.0); ARTERIAL BLOOD GAS HCO3 24.3 mmol/L; ARTERIAL BLOOD GAS MET HB 1.2 %sat (0.0-2.0); ARTERIAL BLOOD GAS PCO2 71.5 mmHg (35.0-45.0); ARTERIAL DRAW? YES
[2017-03-20 16:05] LABS: ARTERIAL BLOOD GAS DELIVERY VENT; ARTERIAL BLOOD GAS VENT MODE PRVC
[2017-03-21 04:50] LABS: ARTERIAL BLD GAS O2 SATURATION 98.5 % (90.0-100.0); ARTERIAL BLOOD GAS HCO3 28.3 mmol/L; ARTERIAL BLOOD GAS PCO2 66.7 mmHg (35.0-45.0); ARTERIAL BLOOD GAS pH 7.236 (7.350-7.450)
[2017-03-21 04:51] LABS: ARTERIAL BLOOD GAS ALLEN TEST NORMAL; ARTERIAL BLOOD GAS ART SITE RIGHT RADIAL; ARTERIAL BLOOD GAS CARBOXY HB 0.5 %sat (0.0-9.0); ARTERIAL BLOOD GAS DELIVERY VENT; ARTERIAL BLOOD GAS VENT MODE PRVC; ARTERIAL DRAW? YES
[2017-03-21 08:40] LABS: BASOPHIL% 0.1 % (0-2.5); HEMATOCRIT 38.9 % (38.0-50.0); LYMPHOCYTE# 0.3 X10e3 (1.0-3.5); MEAN CELL VOLUME 90.5 FL (83-96); MEAN CORPUSCULAR HEMOGLOBIN 29.8 PG (28-34); MEAN PLATELET VOLUME 8.2 FL (6.5-11.5); MONOCYTE# 0.8 X10e3 (0-1.0); NEUTROPHIL# 14.2 X10e3 (1.5-7.1); NEUTROPHIL% 92.9 % (40-75); PLATELET COUNT 308 X10e3 (140-420); RED CELL DISTRIBUTION WIDTH 13.1 % (11.0-15.5); WHITE BLOOD COUNT 15.3 X10e3 (4.0-10.5)
[2017-03-21 08:42] LABS: HEMOGLOBIN 12.8 gm/dL (13.0-16.0)
[2017-03-21 08:44] LABS: DIFF IND YES
[2017-03-21 09:06] LABS: ALBUMIN SERUM 3.4 g/dL (3.5-5.0); BILIRUBIN,TOTAL 0.2 mg/dL (0.2-2.0); CALCIUM SERUM 8.3 mg/dL (8.4-10.2); CREATININE SERUM 0.8 mg/dL (0.6-1.4); MAGNESIUM 2.2 mg/dL (1.6-3.0); POTASSIUM 4.2 mmol/L (3.5-5.1); PROTEIN TOTAL SERUM 5.9 g/dL (6.0-8.3)
[2017-03-21 10:13] LABS: PLATELET ESTIMATE NORMAL (NORMAL); RBC NORMAL YES
[2017-03-21 10:14] LABS: ANISOCYTOSIS SL
[2017-03-22 04:03] LABS: ARTERIAL BLOOD GAS pH 7.297 (7.350-7.450)
[2017-03-22 04:05] LABS: ARTERIAL BLD GAS O2 SATURATION 98.8 % (90.0-100.0); ARTERIAL BLOOD GAS ALLEN TEST NORMAL; ARTERIAL BLOOD GAS ART SITE RIGHT RADIAL; ARTERIAL BLOOD GAS CARBOXY HB 0.4 %sat (0.0-9.0); ARTERIAL BLOOD GAS DELIVERY VENT; ARTERIAL BLOOD GAS HCO3 36.2 mmol/L; ARTERIAL BLOOD GAS MET HB 0.7 %sat (0.0-2.0); ARTERIAL BLOOD GAS PCO2 74.2 mmHg (35.0-45.0); ARTERIAL BLOOD GAS VENT MODE PRVC; ARTERIAL DRAW? YES
[2017-03-22 04:42] LABS: BASOPHIL% 0.1 % (0-2.5); HEMATOCRIT 37.9 % (38.0-50.0); HEMOGLOBIN 12.4 gm/dL (13.0-16.0); LYMPHOCYTE# 0.4 X10e3 (1.0-3.5); LYMPHOCYTE% 2.5 % (17.0-45.0); MEAN CELL VOLUME 90.7 FL (83-96); MEAN CORPUSCULAR HEMOGLOBIN 29.6 PG (28-34); MEAN CORPUSCULAR HGB CONC 32.6 g/dL (30-36); MEAN PLATELET VOLUME 8.7 FL (6.5-11.5); MONOCYTE# 0.7 X10e3 (0-1.0); MONOCYTE% 4.7 % (3.0-12.0); NEUTROPHIL# 13.9 X10e3 (1.5-7.1); NEUTROPHIL% 92.7 % (40-75); PLATELET COUNT 261 X10e3 (140-420); RED BLOOD COUNT 4.18 X10e (3.90-5.60); RED CELL DISTRIBUTION WIDTH 13.2 % (11.0-15.5)
[2017-03-22 04:44] LABS: DIFF IND NO
[2017-03-22 05:02] LABS: BILIRUBIN,TOTAL 0.2 mg/dL (0.2-2.0); BUN/CREATININE RATIO 23.33; CALCIUM SERUM 8.2 mg/dL (8.4-10.2); CREATININE SERUM 0.6 mg/dL (0.6-1.4); GLOM FILT RATE Estimated 124.9 mL/min (>60); POTASSIUM 4.4 mmol/L (3.5-5.1); PROTEIN TOTAL SERUM 5.3 g/dL (6.0-8.3)
[2017-03-22 06:35] LABS: ARTERIAL BLOOD GAS pH 7.333 (7.350-7.450)
[2017-03-22 06:36] LABS: ARTERIAL BLD GAS O2 SATURATION 96.7 % (90.0-100.0); ARTERIAL BLOOD GAS ALLEN TEST NORMAL; ARTERIAL BLOOD GAS ART SITE RIGHT RADIAL; ARTERIAL BLOOD GAS CARBOXY HB 0.5 %sat (0.0-9.0); ARTERIAL BLOOD GAS DELIVERY VENT; ARTERIAL BLOOD GAS HCO3 36.4 mmol/L; ARTERIAL BLOOD GAS MET HB 0.8 %sat (0.0-2.0); ARTERIAL BLOOD GAS PCO2 68.7 mmHg (35.0-45.0); ARTERIAL BLOOD GAS PO2 99.3 mmHg (80.0-100); ARTERIAL BLOOD GAS VENT MODE AC; ARTERIAL DRAW? YES
[2017-03-23 04:34] LABS: HEMATOCRIT 37.8 % (38.0-50.0); HEMOGLOBIN 12.5 gm/dL (13.0-16.0); MEAN CELL VOLUME 89.1 FL (83-96); MEAN CORPUSCULAR HEMOGLOBIN 29.4 PG (28-34); MEAN PLATELET VOLUME 8.6 FL (6.5-11.5); RED BLOOD COUNT 4.24 X10e (3.90-5.60); RED CELL DISTRIBUTION WIDTH 12.8 % (11.0-15.5); WHITE BLOOD COUNT 10.9 X10e3 (4.0-10.5)
[2017-03-24 03:52] LABS: BASOPHIL% 0.4 % (0-2.5); HEMATOCRIT 39.3 % (38.0-50.0); HEMOGLOBIN 13.1 gm/dL (13.0-16.0); LYMPHOCYTE# 0.6 X10e3 (1.0-3.5); LYMPHOCYTE% 6.7 % (17.0-45.0); MEAN CELL VOLUME 88.3 FL (83-96); MEAN CORPUSCULAR HEMOGLOBIN 29.5 PG (28-34); MEAN CORPUSCULAR HGB CONC 33.4 g/dL (30-36); MEAN PLATELET VOLUME 8.9 FL (6.5-11.5); MONOCYTE# 0.6 X10e3 (0-1.0); MONOCYTE% 7.4 % (3.0-12.0); NEUTROPHIL# 7.1 X10e3 (1.5-7.1); NEUTROPHIL% 85.5 % (40-75); PLATELET COUNT 259 X10e3 (140-420); RED BLOOD COUNT 4.44 X10e (3.90-5.60); RED CELL DISTRIBUTION WIDTH 12.8 % (11.0-15.5); WHITE BLOOD COUNT 8.3 X10e3 (4.0-10.5)
[2017-03-24 03:56] LABS: DIFF IND NO
[2017-03-24 04:26] LABS: CALCIUM SERUM 8.3 mg/dL (8.4-10.2); CREATININE SERUM 0.5 mg/dL (0.6-1.4); GLOM FILT RATE Estimated 134.7 mL/min (>60); POTASSIUM 3.9 mmol/L (3.5-5.1)
[2017-03-25 06:28] LABS: BASOPHIL% 0.1 % (0-2.5); HEMATOCRIT 52.2 % (38.0-50.0); LYMPHOCYTE% 7.9 % (17.0-45.0); MEAN CELL VOLUME 87.8 FL (83-96); MEAN CORPUSCULAR HEMOGLOBIN 29.3 PG (28-34); MEAN CORPUSCULAR HGB CONC 33.3 g/dL (30-36); MONOCYTE# 1.4 X10e3 (0-1.0); MONOCYTE% 10.6 % (3.0-12.0); NEUTROPHIL# 10.7 X10e3 (1.5-7.1); NEUTROPHIL% 81.4 % (40-75); PLATELET COUNT 381 X10e3 (140-420); RED BLOOD COUNT 5.95 X10e (3.90-5.60); RED CELL DISTRIBUTION WIDTH 12.9 % (11.0-15.5)
[2017-03-25 07:06] LABS: WHITE BLOOD COUNT 13.2 X10e3 (4.0-10.5)
[2017-03-25 07:07] LABS: HEMOGLOBIN 17.4 gm/dL (13.0-16.0)
[2017-03-25 07:08] LABS: DIFF IND NO
[2017-03-26 03:59] LABS: ALBUMIN SERUM 4.2 g/dL (3.5-5.0); BILIRUBIN,TOTAL 0.6 mg/dL (0.2-2.0); BUN/CREATININE RATIO 52.5; CALCIUM SERUM 9.7 mg/dL (8.4-10.2); CREATININE SERUM 0.8 mg/dL (0.6-1.4); POTASSIUM 3.1 mmol/L (3.5-5.1); PROTEIN TOTAL SERUM 7.9 g/dL (6.0-8.3)
[2017-03-26 04:43] LABS: ARTERIAL BLD GAS O2 SATURATION 97.7 % (90.0-100.0); ARTERIAL BLOOD GAS CARBOXY HB 0.5 %sat (0.0-9.0); ARTERIAL BLOOD GAS HCO3 39.8 mmol/L; ARTERIAL BLOOD GAS MET HB 0.5 %sat (0.0-2.0); ARTERIAL BLOOD GAS PCO2 47.5 mmHg (35.0-45.0); ARTERIAL BLOOD GAS PO2 88.4 mmHg (80.0-100); ARTERIAL BLOOD GAS pH 7.531 (7.350-7.450)
[2017-03-26 04:44] LABS: ARTERIAL BLOOD GAS ALLEN TEST NORMAL; ARTERIAL BLOOD GAS ART SITE RIGHT RADIAL; ARTERIAL BLOOD GAS DELIVERY NASAL CANNULA; ARTERIAL DRAW? YES
[2017-03-26 08:13] LABS: BASOPHIL% 0.3 % (0-2.5); EOSINOPHIL# 0.1 X10e3 (0-0.7); EOSINOPHIL% 0.4 % (0.0-7.0); HEMATOCRIT 56.6 % (38.0-50.0); LYMPHOCYTE# 1.4 X10e3 (1.0-3.5); LYMPHOCYTE% 7.8 % (17.0-45.0); MEAN CELL VOLUME 86.4 FL (83-96); MEAN CORPUSCULAR HEMOGLOBIN 29.7 PG (28-34); MEAN CORPUSCULAR HGB CONC 34.3 g/dL (30-36); MEAN PLATELET VOLUME 8.7 FL (6.5-11.5); MONOCYTE# 1.6 X10e3 (0-1.0); MONOCYTE% 9.3 % (3.0-12.0); NEUTROPHIL# 14.5 X10e3 (1.5-7.1); NEUTROPHIL% 82.2 % (40-75); PLATELET COUNT 414 X10e3 (140-420); RED BLOOD COUNT 6.54 X10e (3.90-5.60); RED CELL DISTRIBUTION WIDTH 13.1 % (11.0-15.5); WHITE BLOOD COUNT 17.6 X10e3 (4.0-10.5)
[2017-03-26 08:22] LABS: DIFF IND YES; HEMOGLOBIN 19.4 gm/dL (13.0-16.0)
[2017-03-26 09:02] LABS: PLATELET ESTIMATE NORMAL (NORMAL)
[2017-03-26 10:45] LABS: ARTERIAL BLD GAS O2 SATURATION 97.9 % (90.0-100.0); ARTERIAL BLOOD GAS ALLEN TEST NORMAL; ARTERIAL BLOOD GAS ART SITE RIGHT RADIAL; ARTERIAL BLOOD GAS CARBOXY HB 0.2 %sat (0.0-9.0); ARTERIAL BLOOD GAS DELIVERY NASAL CANNULA; ARTERIAL BLOOD GAS HCO3 31.8 mmol/L; ARTERIAL BLOOD GAS MET HB 0.3 %sat (0.0-2.0); ARTERIAL BLOOD GAS PCO2 48.3 mmHg (35.0-45.0); ARTERIAL BLOOD GAS pH 7.427 (7.350-7.450); ARTERIAL DRAW? YES
[2017-03-26 18:26] LABS: AMPHETAMINE NEG (NEG); BARBITURATES NEG (NEG); BENZODIAZEPINES NEG (NEG); COCAINE NEG (NEG); MARIJUANA POS (NEG); OPIATES NEG (NEG); TRICYCLIC ANTIDEPRESSANTS NEG (NEG); U METHADONE NEG (NEG)
[2017-03-27 05:51] LABS: HEMATOCRIT 50.5 % (38.0-50.0); MEAN CELL VOLUME 86.8 FL (83-96); MEAN CORPUSCULAR HEMOGLOBIN 29.2 PG (28-34); MEAN CORPUSCULAR HGB CONC 33.6 g/dL (30-36); MEAN PLATELET VOLUME 9.3 FL (6.5-11.5); RED BLOOD COUNT 5.81 X10e (3.90-5.60); RED CELL DISTRIBUTION WIDTH 12.7 % (11.0-15.5); WHITE BLOOD COUNT 21.8 X10e3 (4.0-10.5)
[2017-03-27 06:06] LABS: BUN/CREATININE RATIO 42.85; CALCIUM SERUM 8.8 mg/dL (8.4-10.2); CREATININE SERUM 0.7 mg/dL (0.6-1.4); GLOM FILT RATE Estimated 117.3 mL/min (>60); MAGNESIUM 1.9 mg/dL (1.6-3.0); POTASSIUM 3.5 mmol/L (3.5-5.1)
[2017-03-27] MEDS ORDERED: VISTARIL PO (14:01)
[2017-03-27] MEDS ORDERED: LOPRESSOR PO (14:01)
[2017-03-27] MEDS ORDERED: ALBUTEROL MININEB NEB (14:02)
[2017-03-27] MEDS ORDERED: PREDNISONE PO (14:02)
[2017-03-27] MEDS ORDERED: ALBUTEROL20 ml INH (14:03)
== END 2017-03-27 16:13 | disposition home or self-care (01) | DRG 208 ==
LOC: EDBD 03:09 → CED 03:09 → CICCU3 05:00 → CEDOF 05:00 → CED 05:17 → CEDOF 08:06 → CICCU3 08:06 → C4C 03-25 21:23 → C5B 03-26 09:43
PROVIDERS: Emergency Medicine; Internal Medicine; Internal Medicine Pulmonary Disease; Nurse Practitioner
PROC: 0BH17EZ Insertion of Endotracheal Airway into Trachea, Via Natural or Artificial Opening (ICD-10-PCS; principal; 2017-03-20)
PROC: 5A1945Z Respiratory Ventilation, 24-96 Consecutive Hours (ICD-10-PCS; 2017-03-20)
PROC: 05HM33Z Insertion of Infusion Device into Right Internal Jugular Vein, Percutaneous Approach (ICD-10-PCS; 2017-03-20)
DX: J96.01 Acute respiratory failure with hypoxia (principal); G92 Toxic encephalopathy; J45.902 Unspecified asthma with status asthmaticus; E86.0 Dehydration; J96.02 Acute respiratory failure with hypercapnia; F15.10 Other stimulant abuse, uncomplicated; F11.10 Opioid abuse, uncomplicated; R91.8 Other nonspecific abnormal finding of lung field; Z91.19 Patient's noncompliance with other medical treatment and regimen; R00.0 Tachycardia, unspecified; Z80.3 Family history of malignant neoplasm of breast; Z80.8 Family history of malignant neoplasm of other organs or systems; Z82.49 Family history of ischemic heart disease and other diseases of the circulatory system; J34.89 Other specified disorders of nose and nasal sinuses; F12.10 Cannabis abuse, uncomplicated
CPT/HCPCS: 31500; 36600; 70450; 71010; 71020; 74000; 80048; 80053; 80076; 80307; 82308; 82553; 82785; 82803; 82947; 83036; 83605; 83735; 83880; 84132; 84484; 85025; 85027; 85610; 85730; 87040; 92610; 93005; 94002; 94640; 94644; 94660; 94760; 97116; 97162; 97166; 97530; 99291; C9113; G0480; G8978-GP; G8979-GP; G8987-GO; G8988-GO; G8989-GO; G8996-GN; G8997-GN; G8998-GN; J0360; J0456; J1650; J1815; J1956; J2250; J2310; J2405; J2930; J3490

== ENCOUNTER 2017-03-31 08:18 | Emergency (ER) | payer MEDICARE ==
--- NOTE | ~2017-03-31 | EKG ---
PATIENT: LEROY TROY UNIT #: [id number] Ventricular Rate: 134 BPM Atrial Rate: 134 BPM P-R Interval: 112 ms QRS Duration: 70 ms Q-T Interval: 322 ms QTC Calculation(Bezet): 480 ms P [place]: 77 degrees Calculated R [place]: 58 degrees Calculated T [place]: 94 degrees Diagnosis Line: Sinus tachycardia Diagnosis Line: Minimal voltage criteria for LVH, may be normal Diagnosis Line: variant Diagnosis Line: Abnormal ECG Diagnosis Line: When compared with ECG of 26-MAR-2017 07:49, Diagnosis Line: Vent. rate has increased BY 59 BPM Diagnosis Line: Confirmed by TINO BENDER MD ([id number]) on Diagnosis Line: 04/01/2017 2:52:54 PM INTERPRETING : LINDA
[~2017-03-31 08:18] MED LIST: ALBUTEROL MININEB NEB; ALBUTEROL20 ml INH; LOPRESSOR PO; PREDNISONE PO; VISTARIL PO
[2017-03-31 09:23] LABS: BASOPHIL# 0.1 X10e3 (0-0.3); BASOPHIL% 0.5 % (0-2.5); EOSINOPHIL# 0.6 X10e3 (0-0.7); EOSINOPHIL% 3.8 % (0.0-7.0); HEMATOCRIT 45.4 % (38.0-50.0); HEMOGLOBIN 15.1 gm/dL (13.0-16.0); LYMPHOCYTE# 2.4 X10e3 (1.0-3.5); LYMPHOCYTE% 14.5 % (17.0-45.0); MEAN CELL VOLUME 87.5 FL (83-96); MEAN CORPUSCULAR HEMOGLOBIN 29.1 PG (28-34); MEAN CORPUSCULAR HGB CONC 33.2 g/dL (30-36); MEAN PLATELET VOLUME 9.1 FL (6.5-11.5); MONOCYTE# 1.1 X10e3 (0-1.0); MONOCYTE% 6.4 % (3.0-12.0); NEUTROPHIL# 12.6 X10e3 (1.5-7.1); NEUTROPHIL% 74.8 % (40-75); PLATELET COUNT 323 X10e3 (140-420); RED BLOOD COUNT 5.18 X10e (3.90-5.60); WHITE BLOOD COUNT 16.8 X10e3 (4.0-10.5)
[2017-03-31 09:24] LABS: DIFF IND YES
[2017-03-31 09:44] LABS: ALBUMIN SERUM 3.8 g/dL (3.5-5.0); ALKALINE PHOSPHATASE 54 U/L (32-92); ALT (SGPT) 52 U/L (10-40); AST (SGOT) 24 U/L (10-42); BILIRUBIN, DIRECT 0.2 mg/dL (0.0-0.2); BILIRUBIN,INDIRECT 0.4 mg/dL (0.0-0.9); BILIRUBIN,TOTAL 0.6 mg/dL (0.2-2.0); BLOOD UREA NITROGEN 16 mg/dL (9-23); BUN/CREATININE RATIO 14.54; CALCIUM SERUM 9.3 mg/dL (8.4-10.2); CARBON DIOXIDE 25 mmol/L (22-31); CHLORIDE 102 mmol/L (100-111); CREATININE SERUM 1.1 mg/dL (0.6-1.4); GLUCOSE FASTING 103 mg/dL (70-110); POTASSIUM 4.2 mmol/L (3.5-5.1); PROTEIN TOTAL SERUM 6.5 g/dL (6.0-8.3); SODIUM 138 mmol/L (135-145)
[2017-03-31 10:01] LABS: ALCOHOL BLOOD <5 mg/dL (0)
[2017-03-31 10:03] LABS: ANISOCYTOSIS SL; PLATELET ESTIMATE NORMAL (NORMAL); RBC NORMAL YES
== END 2017-03-31 09:20 | disposition left against medical advice (07) ==
LOC: CED 08:18
PROVIDERS: Nurse Practitioner
DX: R00.0 Tachycardia, unspecified (principal); J45.909 Unspecified asthma, uncomplicated; F17.200 Nicotine dependence, unspecified, uncomplicated; Z79.899 Other long term (current) drug therapy
CPT/HCPCS: 80048; 80076; 85025; 93005; 99284; G0480